=== PATIENT | male | born 1960 | race Caucasian/White ===

== ENCOUNTER 2016-11-26 08:41 | Emergency (ER) | payer OTHER ==
[~2016-11-26] VITALS: Ht 175.3 cm; Wt 86.2 kg
[2016-11-26 10:18] VITALS: BP 117/60
== END 2016-11-26 10:18 | disposition home or self-care (01) ==
LOC: ED 08:41
DX: S86.911A Strain of unspecified muscle(s) and tendon(s) at lower leg level, right leg, initial encounter (principal); R03.0 Elevated blood-pressure reading, without diagnosis of hypertension; X50.9XXA Other and unspecified overexertion or strenuous movements or postures, initial encounter; Y93.01 Activity, walking, marching and hiking; Y99.8 Other external cause status; Y92.89 Other specified places as the place of occurrence of the external cause
CPT/HCPCS: J1885; Q0092

== ENCOUNTER 2017-01-29 08:18 | Inpatient (IN) | payer OTHER ==
[~2017-01-29] VITALS: Ht 170.2 cm; Wt 86.2 kg
[2017-01-29 08:48] LABS: BASOPHIL % 0.7 % (0-2); PLATELET COUNT 241 x10^3mcL (130-400); RED CELL DISTRIBUTION WIDTH 13.6 % (11.5-14.5)
[2017-01-29 08:54] LABS: CALCIUM 8.7 mg/dL (8.5-10.1); CARBON DIOXIDE 29.9 mmol/L (21-32); CHLORIDE SERUM 105 mmol/L (98-107); CREATININE SERUM 0.9 mg/dL (0.7-1.3); GFR1 > 60 mL/min; GLUCOSE SERUM 115 mg/dL (74-106); POTASSIUM SERUM 4.2 mmol/L (3.5-5.1); SODIUM SERUM 141 mmol/L (136-145)
[2017-01-29 10:02] LABS: CHOLESTEROL/HDL RATIO 3.1; PHOSPHOROUS 3.4 mg/dL (2.5-4.9)
[2017-01-29 10:06] LABS: T3 TOTAL 1.14 ng/mL
[2017-01-29 10:13] LABS: FREE T4 0.82 ng/dL (0.76-1.46); FREE THYROXINE INDEX 2.4 ug/dL (1.4-4.5); T4(THYROXINE) 6.4 ug/dL (4.7-13.3)
[2017-01-29 10:35] VITALS: BP 134/95
[2017-01-29 12:02] VITALS: BP 134/95
[2017-01-29 13:00] VITALS: BP 130/81
[2017-01-29 16:30] VITALS: BP 137/85
[2017-01-29 17:01] LABS: microscopic required? NO
[2017-01-29 17:33] LABS: urine erythrocyte NEGATIVE (NEGATIVE)
[2017-01-29 17:43] LABS: AMPHETAMINE QUAL UR NONE DETECTED (NEG <=1000)
[2017-01-29 21:15] VITALS: BP 117/81
[2017-01-30 05:39] VITALS: BP 122/84
[2017-01-30 06:02] LABS: BASOPHIL % 0.6 % (0-2); PLATELET COUNT 217 x10^3mcL (130-400); RED CELL DISTRIBUTION WIDTH 13.7 % (11.5-14.5)
[2017-01-30 06:22] LABS: CALCIUM 8.5 mg/dL (8.5-10.1); CARBON DIOXIDE 28.2 mmol/L (21-32); CHLORIDE SERUM 107 mmol/L (98-107); CREATININE SERUM 0.9 mg/dL (0.7-1.3); GFR1 > 60 mL/min; GLUCOSE SERUM 99 mg/dL (74-106); POTASSIUM SERUM 3.9 mmol/L (3.5-5.1); SODIUM SERUM 142 mmol/L (136-145)
[2017-01-30 13:35] VITALS: BP 116/71
[2017-01-30 14:31] VITALS: BP 116/71
[2017-01-30 16:24] VITALS: BP 140/85
[2017-01-30 18:47] VITALS: BP 128/77
[2017-01-31 05:43] VITALS: BP 126/88
[2017-01-31] MEDS ORDERED: APAP/HYDROCODON1 T13 PO (06:09)
[2017-01-31 06:16] LABS: BASOPHIL % 0.7 % (0-2); PLATELET COUNT 223 x10^3mcL (130-400); RED CELL DISTRIBUTION WIDTH 13.2 % (11.5-14.5)
[2017-01-31 10:35] VITALS: BP 115/78
[2017-01-31] MEDS ORDERED: LIPI10 PO (11:02)
[2017-01-31 11:28] VITALS: BP 115/78
== END 2017-01-31 12:54 | disposition home or self-care (01) | DRG 243 ==
LOC: ED 08:18 → DU 09:13
PROVIDERS: Emergency Medicine; ADMIT Family Medicine
DX: K21.9 Gastro-esophageal reflux disease without esophagitis (principal); G90.9 Disorder of the autonomic nervous system, unspecified; I10 Essential (primary) hypertension; M94.0 Chondrocostal junction syndrome [Tietze]; E78.5 Hyperlipidemia, unspecified; R73.03 Prediabetes; R20.0 Anesthesia of skin; M47.894 Other spondylosis, thoracic region; Z68.29 Body mass index [BMI] 29.0-29.9, adult; Z83.3 Family history of diabetes mellitus
CPT/HCPCS: 83880; 84439; J1885; J7030; Q0092

== ENCOUNTER 2017-02-03 09:00 | Emergency (ER) | payer SELFPAY ==
[~2017-02-03] VITALS: Ht 170.2 cm; Wt 83.6 kg
[~2017-02-03 09:00] MED LIST: APAP/HYDROCODON1 T13 PO; LIPI10 PO
[2017-02-03 10:57] VITALS: BP 129/84
== END 2017-02-03 10:57 | disposition home or self-care (01) ==
LOC: ED 09:00
DX: R53.1 Weakness (principal); I10 Essential (primary) hypertension

== ENCOUNTER 2017-02-22 09:37 | Emergency (ER) | payer SELFPAY ==
[~2017-02-22] VITALS: Ht 170.2 cm; Wt 83.9 kg
[2017-02-22 11:02] LABS: BASOPHIL % 0.5 % (0-2); PLATELET COUNT 232 x10^3mcL (130-400); RED CELL DISTRIBUTION WIDTH 12.6 % (11.5-14.5)
[2017-02-22 11:16] LABS: CALCIUM 8.7 mg/dL (8.5-10.1); CARBON DIOXIDE 28.5 mmol/L (21-32); CHLORIDE SERUM 108 mmol/L (98-107); CREATININE SERUM 0.9 mg/dL (0.7-1.3); GFR1 > 60 mL/min; GLUCOSE SERUM 112 mg/dL (74-106); POTASSIUM SERUM 4.6 mmol/L (3.5-5.1); SODIUM SERUM 141 mmol/L (136-145)
[2017-02-22 11:21] LABS: ALBUMIN 3.8 g/dL (3.4-5.0); ALKALINE PHOSPHATASE 90 U/L (46-116); ALT/SGPT 34 U/L (16-63); AST/SGOT 25 U/L (15-37); BILIRUBIN TOTAL 0.7 mg/dL (0.20-1.00); TOTAL PROTEIN, SERUM 7.3 g/dL (6.4-8.2)
[2017-02-22 12:53] VITALS: BP 132/83
== END 2017-02-22 12:53 | disposition home or self-care (01) ==
LOC: ED 09:37
PROVIDERS: Emergency Medicine
DX: R53.1 Weakness (principal); R51 Headache; F41.9 Anxiety disorder, unspecified; I10 Essential (primary) hypertension
CPT/HCPCS: 36415; 83880

== ENCOUNTER 2017-03-07 12:14 | Emergency (ER) | payer SELFPAY ==
[~2017-03-07] VITALS: Ht 170.2 cm; Wt 83.0 kg
[2017-03-07 12:53] LABS: BASOPHIL % 0.6 % (0-2); PLATELET COUNT 249 x10^3mcL (130-400); RED CELL DISTRIBUTION WIDTH 12.2 % (11.5-14.5)
[2017-03-07 13:05] LABS: CARBON DIOXIDE 26.6 mmol/L (21-32); CHLORIDE SERUM 107 mmol/L (98-107); GFR1 > 60 mL/min; GLUCOSE SERUM 94 mg/dL (74-106); POTASSIUM SERUM 3.8 mmol/L (3.5-5.1); SODIUM SERUM 145 mmol/L (136-145)
[2017-03-07 13:10] LABS: ALBUMIN 4.1 g/dL (3.4-5.0); ALKALINE PHOSPHATASE 92 U/L (46-116); ALT/SGPT 32 U/L (16-63); AST/SGOT 24 U/L (15-37); BILIRUBIN TOTAL 0.7 mg/dL (0.20-1.00); TOTAL PROTEIN, SERUM 7.9 g/dL (6.4-8.2)
[2017-03-07 13:58] VITALS: BP 128/85
== END 2017-03-07 13:58 | disposition home or self-care (01) ==
LOC: ED 12:14
PROVIDERS: Emergency Medicine
DX: R51 Headache (principal); R42 Dizziness and giddiness; R20.2 Paresthesia of skin; I10 Essential (primary) hypertension
CPT/HCPCS: 83880; J7030; J7040; Q0092

== ENCOUNTER 2017-05-15 09:00 | Emergency (ER) | payer OTHER ==
[~2017-05-15] VITALS: Ht 170.2 cm; Wt 77.1 kg
[2017-05-15 09:08] VITALS: Ht 170.2 cm; Wt 77.1 kg
[2017-05-15 11:25] LABS: BASOPHIL % 0.6 % (0-2); PLATELET COUNT 232 x10^3mcL (130-400); RED CELL DISTRIBUTION WIDTH 12.4 % (11.5-14.5)
[2017-05-15 11:51] LABS: CALCIUM 8.5 mg/dL (8.5-10.1); CHLORIDE SERUM 105 mmol/L (98-107); CREATININE SERUM 0.8 mg/dL (0.7-1.3); GFR1 > 60 mL/min; GLUCOSE SERUM 98 mg/dL (74-106); SODIUM SERUM 141 mmol/L (136-145)
[2017-05-15 11:55] LABS: ALBUMIN 3.7 g/dL (3.4-5.0); ALKALINE PHOSPHATASE 83 U/L (46-116); ALT/SGPT 33 U/L (16-63); AMYLASE 65 U/L (25-115); AST/SGOT 20 U/L (15-37); BILIRUBIN TOTAL 0.5 mg/dL (0.20-1.00); CHOLESTEROL 173 mg/dL (<200); HDL CHOLESTEROL 53 mg/dL (40-60); LIPASE 151 IU/L (73-393); TOTAL PROTEIN, SERUM 7.2 g/dL (6.4-8.2)
[2017-05-15 12:32] LABS: microscopic required? NO
[2017-05-15 12:49] LABS: urine erythrocyte NEGATIVE (NEGATIVE)
[2017-05-15 13:34] LABS: AMPHETAMINE QUAL UR NONE DETECTED (NEG <=1000)
[2017-05-15 15:21] VITALS: BP 120/64
== END 2017-05-15 15:21 | disposition home or self-care (01) ==
LOC: ED 09:00
PROVIDERS: Emergency Medicine
DX: S29.012A Strain of muscle and tendon of back wall of thorax, initial encounter (principal); M51.34 Other intervertebral disc degeneration, thoracic region; M41.9 Scoliosis, unspecified; I10 Essential (primary) hypertension; X58.XXXA Exposure to other specified factors, initial encounter; Y99.8 Other external cause status; Y93.89 Activity, other specified; Y92.89 Other specified places as the place of occurrence of the external cause
CPT/HCPCS: 72072; 83880; J1100; J1885

== ENCOUNTER 2018-09-23 07:49 | Emergency (ER) | payer OTHER ==
[~2018-09-23] VITALS: Ht 172.7 cm; Wt 87.5 kg
[2018-09-23 07:57] VITALS: Ht 172.7 cm; Wt 87.5 kg
[2018-09-23 08:44] VITALS: BP 126/93
== END 2018-09-23 08:44 | disposition home or self-care (01) ==
LOC: ED 07:49
DX: M54.12 Radiculopathy, cervical region (principal)
CPT/HCPCS: J1885

== ENCOUNTER 2019-06-07 08:27 | Emergency (ER) | payer OTHER ==
[~2019-06-07] VITALS: Ht 167.6 cm; Wt 90.3 kg
[2019-06-07 09:37] VITALS: Ht 167.6 cm; Wt 90.3 kg
[2019-06-07 12:05] VITALS: BP 138/93
== END 2019-06-07 12:06 | disposition home or self-care (01) ==
LOC: ED 08:27
DX: H57.89 Other specified disorders of eye and adnexa (principal); H57.11 Ocular pain, right eye